=== PATIENT | male | born 1985 | race Caucasian/White ===

== ENCOUNTER 2020-06-10 07:02 | Outpatient (CLI) | payer OTHER, SELFPAY ==
[2020-06-10 07:40] LABS: Basophils Absolute Auto 0.1 K/mm3 (0.0-0.1); Basophils Percent Auto 0.7 % (0.2-1.2); Eosinophils Absolute Auto 0.2 K/mm3 (0-0.3); Hematocrit 42.3 % (42.0-52.0); Hemoglobin 14.9 g/dL (14.0-18.0); Immature Granulocyte Absolute 0.05 K/mm3 (0.00-0.031); Immature Granulocyte Percent A 0.6 % (0-0.5); Lymphocytes Absolute Auto 2.51 K/mm3 (0.9-3.2); Lymphocytes Percent Auto 31.3 % (18.3-44.2); Mean Corpuscular HGB Conc 35.2 g/dl (32-36); Mean Corpuscular Volume 85.3 fl (80-100); Mean Platelet Volume 9.3 fl (7.4-10.4); Monocytes Absolute Auto 0.4 K/mm3 (0.1-0.6); Monocytes Percent Auto 4.7 % (2.6-8.5); Neutrophils Absolute Auto 4.9 K/mm3 (1.3-6.7); Neutrophils Percent Auto 60.7 % (45.5-73.1); Platelet Count Result 246 k/mm3 (150-375); Red Blood Count 4.96 M/mm3 (4.6-6.20)
[2020-06-10 07:51] LABS: Alanine Aminotransferase 39 U/L (4-50); Albumin Level 4.3 g/dL (3.5-5.1); Alkaline Phosphatase 54 U/L (38-126); Anion Gap 7 mmol/L (8-16); Aspartate Amino Transferase 32 U/L (17-59); Bilirubin,Total 0.7 mg/dL (0.2-1.3); Blood Urea Nitrogen 25 mg/dL (9-20); Calcium 9.4 mg/dL (8.4-10.2); Carbon Dioxide 31 mmol/L (22-30); Chloride 102 mmol/L (98-107); Cholesterol 188 mg/dL (0-200); Estimated Glomerular Filt Rate > 60; Glucose 98 mg/dL (75-110); HDL Direct 35 mg/dL; Potassium 4.5 mmol/L (3.4-5.0); Sodium 140 mmol/L (137-145); Triglycerides 121 mg/dL (<150)
[2020-06-10 08:04] LABS: LDL Cholesterol Direct 131 mg/dL
== END 2020-06-10 07:03 | disposition home or self-care (01) ==
PROVIDERS: PCP Internal Medicine; Visit Provider Clinical Nurse Specialist
DX: E78.5 Hyperlipidemia, unspecified (principal); Z13.228 Encounter for screening for other metabolic disorders; E11.69 Type 2 diabetes mellitus with other specified complication
CPT/HCPCS: 36415; 80053; 80061; 85025

== ENCOUNTER → 2020-06-21 14:26 | Outpatient (CLI) | payer OTHER, SELFPAY ==
--- NOTE | ~2020-06-21 | XR_ITS ---
EXAMINATION: XR hip RT min 2V DATE: 06/21/2020 14:58 INDICATION: Right hip pain. TECHNIQUE: 2 views of right hip were obtained. COMPARISON: Pelvis radiograph 10/14/10 FINDINGS: Bone alignment is normal. No fracture. Right hip joint space is normal. IMPRESSION: 1. Normal right hip. Reviewed, dictated and finalized at location B. CTOR OF CARDIOLOGY IMPRESSION: 1. Normal right hip.
--- NOTE | ~2020-06-21 | XR_ITS ---
EXAMINATION: XR lumbar spine 2-3V DATE: 06/21/2020 14:58 INDICATION: Low back pain. TECHNIQUE: 3 views of lumbar spine were obtained. COMPARISON: Lumbar spine radiographs 03/11/2014 FINDINGS: There is 3 degrees dextrocurvature of lumbar spine. Vertebral body heights are normal. Ther e is mildly decreased disc height at L5-S1. The facet joints are unremarkable. IMPRESSION: 1. Mild lumbar spondylosis. Reviewed, dictated and finalized at location B. T TESTER IMPRESSION: 1. Mild lumbar spondylosis.
== END ==
PROVIDERS: PCP Clinical Nurse Specialist; Visit Provider Nurse Practitioner Adult Health
DX: M47.896 Other spondylosis, lumbar region (principal); M25.551 Pain in right hip
CPT/HCPCS: 72100; 73502

== ENCOUNTER → 2020-06-25 08:40 | Outpatient (CLI) | payer OTHER, SELFPAY ==
--- NOTE | ~2020-06-25 | CT_ITS ---
EXAMINATION: CT lumbar spine wo con DATE: 06/25/2020 09:02 INDICATION: Right low back pain TECHNIQUE: Computed tomography (CT) of the lumbar spine was performed without intravenous contrast. A utomated exposure control and iterative reconstruction technique were employed. The dose-length produ ct was 689.89 mGy-cm. COMPARISON: None FINDINGS: 1 mm retrolisthesis L4 on L5. Alignment is otherwise normal. Vertebral body and disc height s heights are normal. Small hemangioma at L2. Paravertebral soft tissues are unremarkable. No urolith iasis in the visualized kidneys or bilateral ureters. The following disc levels are specifically disc ussed: T12-L1: Disc is minimally bulging. There is mild right and minimal left facet joint osteoarthritis. T here is no neural foraminal stenosis. There is negligible central canal stenosis. L1-L2: Disc is mildly bulging. There is mild bilateral facet joint osteoarthritis. There is no neural foraminal stenosis. There is minimal central canal stenosis. L2-L3: Disc is mildly bulging. There is mild left and minimal right facet joint osteoarthritis. There is minimal bilateral neural foraminal stenosis. There is mild central canal stenosis. L3-L4: Disc is minimally bulging. There is mild bilateral facet joint osteoarthritis. There is minima l bilateral neural foraminal stenosis. There is minimal central canal stenosis. L4-L5: Disc is mildly bulging. There is minimal right facet joint osteoarthritis. There is mild bilat eral neural foraminal stenosis. There is mild central canal stenosis. L5-S1: Disc is bulging with large central disc extrusion with disc extending proximally 5 mm cephalad and caudal to the level of the endplates. There is mild right and minimal left facet joint osteoarth ritis. There is mild to moderate bilateral neural foraminal stenosis. There is mild central canal meryl nosis. There is however more prominent narrowing of the lateral recesses, right greater than left wit h mass effect upon the traversing right S1 nerve root. IMPRESSION: 1. Mild lumbar spondylosis most notable for a large central disc extrusion at L5-S1 which narrows the lateral recesses particularly on the right compressing the right S1 nerve root. Correlate clinically for muscle weakness of plantar flexion, sensory change of the lateral foot and small toe, and depres sed ankle reflex. Reviewed, dictated and finalized at location H. UREMENT AND SENSING TECHNICIAN IMPRESSION: 1. Mild lumbar spondylosis most notable for a large central disc extrusion at L 5-S1 which narrows the lateral recesses particularly on the right compressing t he right S1 nerve root. Correlate clinically for muscle weakness of plantar fle xion, sensory change of the lateral foot and small toe, and depressed ankle ref norma.
--- NOTE | ~2020-06-25 | CT_ITS ---
EXAMINATION: CT LE RT wo con DATE: 06/25/2020 09:02 INDICATION: Right hip pain TECHNIQUE: High resolution computed tomography (CT) of the right hip was performed without intravenou s contrast. Additional sagittal and coronal reconstructions were performed. Automated exposure contro l and iterative reconstruction technique were employed. The dose-length product was 188.26 mGy-cm. COMPARISON: Right hip radiographs dated 06/21/2020 FINDINGS: Bone alignment is normal. No fracture or suspected avascular necrosis. Joint spaces are normal. No ri ght hip joint effusion. Mild cystic change at the anterosuperior femoral head/neck junction where the re is also decreased offset which could predispose towards cam-type femoral acetabular impingement. T iny fat-containing right inguinal hernia. Soft tissues are otherwise unremarkable with normal appeara nce to the muscles and tendons about the right hip. IMPRESSION: 1. Decreased right femoral head neck offset and mild cystic change at the anterosuperior femoral head head neck junction which could predispose towards cam-type femoral acetabular impingement. Correlate clinically for signs/symptoms of impingement. Otherwise normal right hip. 2. Tiny fat-containing right inguinal hernia. Reviewed, dictated and finalized at location H. LIFT CUTTER IMPRESSION: 1. Decreased right femoral head neck offset and mild cystic change at the anter osuperior femoral head head neck junction which could predispose towards cam-ty pe femoral acetabular impingement. Correlate clinically for signs/symptoms of i mpingement. Otherwise normal right hip. 2. Tiny fat-containing right inguinal hernia.
== END ==
PROVIDERS: Visit Provider Nurse Practitioner Adult Health
DX: M47.896 Other spondylosis, lumbar region (principal); K40.90 Unilateral inguinal hernia, without obstruction or gangrene, not specified as recurrent
CPT/HCPCS: 72131; 73700